=== PATIENT | female | born 1960 | race Caucasian/White ===

== ENCOUNTER 2016-10-20 08:09 | Day surgery (SDCO) | payer OTHER ==
[~2016-10-20] VITALS: Ht 162.6 cm; Wt 58.7 kg
[2016-10-20 08:49] LABS: BASOPHIL 0.4 % (0-2); EOSINOPHIL 1.8 % (0-5); HCT 38.6 % (37.0-47.0); HGB 13.3 g/dl (12.5-16.0); LYMPHOCYTE 27.3 % (15-48); MCH 29.7 pg (25.0-31.0); MCHC 34.5 g/dL (32.0-36.0); MCV 86.2 fL (78.0-100.0); MONOCYTE 7.5 % (0-12); MPV 11.5 fL (6.0-9.5); PLT 205 K/uL (150-400); RBC 4.48 M/uL (4.20-5.40); RDW 13.9 % (11.5-14.0); WBC 4.9 K/uL (4.0-10.5)
[2016-10-20 09:01] LABS: ALBUMIN 4.1 g/dL (3.5-5.0); BILIRUBIN - TOTAL 0.3 mg/dL (0.1-1.0); CREATININE 0.5 mg/dL (0.5-1.0); GLOBULIN (CALCULATION) 2.8 g/dL (2.2-4.2); POTASSIUM 3.6 mmol/L (3.5-5.1); TOTAL PROTEIN 6.9 g/dL (6.4-8.3)
[2016-10-20 18:37] LABS: CKMB 2.01 ng/mL (0.97-4.94); TROPONIN T < 0.010 ng/mL
[2016-10-20 23:44] LABS: CKMB 1.72 ng/mL (0.97-4.94); TROPONIN T < 0.010 ng/mL
[2016-10-21] MEDS ORDERED: CALCIUM WITH V1 EAC1 PO (15:44)
[2016-10-21] MEDS ORDERED: VITAMIN E200 UNI1 PO (15:45)
[2016-10-21] MEDS ORDERED: BIOTIN1 MG PO (15:45)
[2016-10-21] MEDS ORDERED: GINKGO BILOBA60 M1 PO (15:46)
[2016-10-21] MEDS ORDERED: LOPRESSOR25 MG PO (15:46)
[2016-10-21] MEDS ORDERED: ALEVE220 M1 PO (15:46)
== END 2016-10-21 13:15 | disposition home or self-care (01) ==
LOC: FER 08:09 → FTCU 09:55
PROVIDERS: Internal Medicine; Internal Medicine Cardiovascular Disease; ADMIT Internal Medicine
DX: R07.9 Chest pain, unspecified (principal); I10 Essential (primary) hypertension; Z82.49 Family history of ischemic heart disease and other diseases of the circulatory system; Z90.710 Acquired absence of both cervix and uterus; Z90.49 Acquired absence of other specified parts of digestive tract; Z98.1 Arthrodesis status; Z98.890 Other specified postprocedural states; Z79.899 Other long term (current) drug therapy
CPT/HCPCS: 36415; 71010; 80053; 80061; 82550; 82553; 84484; 85025; 85379; 93005; G0378; J1885; J2060; J2270; J2405